=== PATIENT | male | born 1960 | race Caucasian/White ===

== ENCOUNTER → 2017-07-10 09:14 | Outpatient (CLI) | payer MEDICARE, SELFPAY ==
--- NOTE | 2017-07-10 09:18 | NM_ITS ---
CLINICAL: Male, 57 years old. Bilateral knee pain. History of prior bilateral knee replacements. WHOLE BODY NUCLEAR BONE SCAN TECHNIQUE: Following the IV administration of 24.5 mCi of Tc MDP, whole body bone imaging was performed with a gamma camera following a three hour delay. COMPARISON STUDIES : None. FINDINGS: A 3 phase bone scan was obtained. Imaging was limited due to both knees. On the blood flow study, no increased blood flow is seen. On the blood pool images, mild uptake is seen in the femoral and tibial components of both knee prosthesis. On the delayed images, there is increased radiopharmaceutical uptake in the region of both the right and left knee prosthesis. This may indicate loosening. Clinical correlation is recommended. NM/Bone Scan Three Phase IMPRESSION: Increased uptake at the level of the tibial and femoral components of both prosthetic knee joints. Loosening should be ruled out. Clinical correlation is recommended. Electronically Signed: Elfego Avila MD at 8:50 EDT Tel [phone], Service support ,
== END ==
PROVIDERS: Visit Provider Orthopaedic Surgery
DX: Z96.653 Presence of artificial knee joint, bilateral (principal); M25.562 Pain in left knee; M25.561 Pain in right knee
CPT/HCPCS: 78315